=== PATIENT | male | born 1995 | race Two or more races ===

== ENCOUNTER 2018-08-24 11:14 | Outpatient (CLI) | payer OTHER | END 2018-08-24 11:29 | disposition home or self-care (01) | LOC: RAD 11:14 | DX: Z01.810 Encounter for preprocedural cardiovascular examination (principal) ==

== ENCOUNTER 2018-09-04 05:06 | Day surgery (SDC) | payer OTHER ==
[~2018-09-04 05:06] MED LIST: ACETAMINOPHEN-1 EAC1; ACETAMINOPHEN325 M2 PO
== END 2018-09-04 12:10 | disposition home or self-care (01) ==
LOC: CIR.AMB 05:06
DX: S63.266A Dislocation of metacarpophalangeal joint of right little finger, initial encounter (principal)